=== PATIENT | female | born 1990 | race Caucasian/White ===

== ENCOUNTER 2018-06-18 18:11 | Observation (INO) | payer MEDICAID, OTHER ==
[~2018-06-18] VITALS: Ht 157.5 cm; Wt 252.0 kg
[2018-06-18 18:31] VITALS: BP 132/69
[2018-06-18] MEDS ORDERED: LACTATED RINGERS 1,000 ML IV NR (20:15)
[2018-06-18] MEDS ORDERED: PNV1TABL50 MT (20:15)
[2018-06-18] MEDS ORDERED: ONDANSETRON HCL 4MG/2ML INJ IV NR (20:15)
[2018-06-18 20:57] LABS: CLARITY URINE CLOUDY (CLEAR); COLOR URINE YELLOW (YELLOW); KETONES URINE TRACE (NEGATIVE); LEUKOCYTE ESTERASE URINE TRACE (NEGATIVE); NITRITE URINE NEGATIVE (NEGATIVE); OCCULT BLOOD URINE NEGATIVE (NEGATIVE); PROTEIN URINE NEGATIVE (NEGATIVE); SPECIFIC GRAVITY URINE 1.011 (1.005-1.030)
[2018-06-18] MEDS ORDERED: CEFAZOLIN 2000MG PREMIX 50 ML IV NR (21:45)
== END 2018-06-18 22:45 | disposition home or self-care (01) ==
LOC: ER 18:11 → L&D 19:17 → 8 EST LDRP 20:36
PROVIDERS: ADMIT Obstetrics & Gynecology; ATTEND Obstetrics & Gynecology
DX: O26.893 Other specified pregnancy related conditions, third trimester (principal); R10.10 Upper abdominal pain, unspecified; O21.2 Late vomiting of pregnancy; Z3A.32 32 weeks gestation of pregnancy
CPT/HCPCS: 81003; 96361; 96365; 96375; 99281; G0378; J0690; J2405; 96360